=== PATIENT | female | born 1945 | race Caucasian/White ===

== ENCOUNTER 2023-08-16 07:12 | Day surgery (SDC) | payer MEDICARE, BC ==
[~2023-08-16 07:12] MED LIST: Sodium Chloride 0.9% 10 ML Syringe FLUSH PRN; Sodium Chloride 0.9% 2.5 ML Syringe FLUSH PRN; Sodium Chloride 0.9% 20 ML SDV IV PRN
[2023-08-16] MEDS: Lactated Ringers 1,000 ML IV SCH (07:44)
[2023-08-16] MEDS ORDERED: dexmedeTOMIDine HCl 200 MCG/2 ML SDV ONE (07:52)
[2023-08-16] MEDS ORDERED: Water For Injection, Sterile 20 ML ONE (07:52)
[2023-08-16] MEDS ORDERED: fentaNYL 100 MCG/2 ML SDV ONE (08:55)
[2023-08-16 09:49] VITALS: BP 125/87; PULSE 63
[2023-08-16] MEDS ORDERED: propofoL 50 ML ONE (10:07)
== END 2023-08-16 09:55 | disposition home or self-care (01) ==
LOC: MW.SDS 07:12
PROVIDERS: ATTEND Surgery
DX: K57.30 Diverticulosis of large intestine without perforation or abscess without bleeding (principal); I10 Essential (primary) hypertension; Z79.899 Other long term (current) drug therapy; Z91.040 Latex allergy status; Z88.2 Allergy status to sulfonamides
CPT/HCPCS: 45378; J2704; J3010; J7120; 00811; 99100; J3490